=== PATIENT | female | born 1940 | race Caucasian/White ===

== ENCOUNTER 2019-03-31 13:05 | Inpatient (IN) | payer MEDICARE ==
--- NOTE | 2019-03-31 14:44 | XR ---
Right knee HISTORY: Right knee pain 3 views of the right knee Patient is status post right knee arthroplasty. There is anatomic alignment. Bone mineralization is r educed. No fracture or dislocation is evident. No evident joint effusion. IMPRESSION: Osteopenia, status post right knee arthroplasty.
--- NOTE | 2019-03-31 15:31 | ED ---
General Adult HPI - General Chief complaint: Extremity Injury, Lower Stated complaint: rt knee pain Time Seen by Provider: 03/31/19 13:18 Source: patient, family Mode of arrival: wheelchair Limitations: no limitations - History of Present Illness Initial comments: Patient is an 79-year-old male presents wit her son emergency Department with right knee pain. Patient reports that she is walking with a walker but is unable to fully bear weight on right knee. Patient states when she attempts walking the patella tends to dislocate medially which is causing a great pain and occasional swelling. Patient reports the pain does not radiate proximally or distally. Patient denies any skin discolorations. Patient reports that she is able to bear weight but only using a walker. Her son states that she has been going to the bathroom "up to 15 times" per day. - Related Data Home Medications Medication Instructions Recorded Confirmed Aspirin [[place] Aspirin EC] 81 mg PO DAILY 03/31/19 03/31/19 Atorvastatin [Lipitor] 40 mg PO DAILY 03/31/19 03/31/19 Docusate [Colace] 100 mg PO DAILY PRN 03/31/19 03/31/19 Ergocalciferol (Vitamin D2) 50,000 unit PO DORADO 03/31/19 03/31/19 [Drisdol] Ferrous Sulfate [Feosol] 325 mg PO DAILY 03/31/19 03/31/19 Furosemide [Lasix] 20 mg PO DAILY PRN 03/31/19 03/31/19 Levothyroxine Sodium [Synthroid] 75 mcg PO DAILY 03/31/19 03/31/19 Metoprolol Tartrate [Lopressor] 25 mg PO DAILY 03/31/19 03/31/19 Valsartan 160 mg PO DAILY 03/31/19 03/31/19 Allergies Allergy/AdvReac Type Severity Reaction Status Date / Time acetaminophen [From Vicodin] Allergy Unknown Verified 03/31/19 19:28 hydrocodone [From Vicodin] Allergy Unknown Verified 03/31/19 19:28 oxybutynin Allergy Unknown Verified 03/31/19 19:28 Review of Systems ROS Statement: Those systems with pertinent positive or pertinent negative responses have been documented in the HPI. ROS Other: All systems not noted in ROS Statement are negative. Past Medical History Past Medical History: Hyperlipidemia, Hypertension, Thyroid Disorder Additional Past Medical History / Comment(s): Anemia History of Any Multi-Drug Resistant Organisms: None Reported Past Surgical History: Appendectomy, Orthopedic Surgery, Tonsillectomy Additional Past Surgical History / Comment(s): Hip Past Psychological History: No Psychological Hx Reported Smoking Status: Current every day smoker Past Alcohol Use History: None Reported Past Drug Use History: None Reported - Past Family History Family Additional Family Medical History / Comment(s): Heart disease runs in the family General Exam Limitations: no limitations General appearance: alert, in no apparent distress Head exam: Present: atraumatic, normocephalic, normal inspection Eye exam: Present: normal appearance, PERRL, EOMI Pupils: Present: normal accommodation ENT exam: Present: normal exam, TM's normal bilaterally Neck exam: Present: normal inspection, full ROM Respiratory exam: Present: normal lung sounds bilaterally Cardiovascular Exam: Present: regular rate, normal rhythm, normal heart sounds GI/Abdominal exam: Present: soft, tenderness (Mild suprapubic tenderness on palpation.) Course Vital Signs 03/31/19 03/31/19 03/31/19 13:08 15:10 16:30 Temperature 98.6 F 98.4 F Pulse Rate 69 62 62 Respiratory 20 18 18 Rate Blood Pressure 158/71 148/79 169/89 O2 Sat by Pulse 97 99 97 Oximetry 03/31/19 03/31/19 03/31/19 17:00 17:30 18:00 Temperature Pulse Rate 64 64 70 Respiratory 15 18 18 Rate Blood Pressure 169/89 177/81 158/78 O2 Sat by Pulse 98 98 Oximetry EKG Findings - EKG Comments: EKG Findings:: Sinus rhythm with marked sinus arrhythmia. Ventricular rate 67, CT interval 170 QRS duration 92, QT/QTc 424/448, P-R-T axes 75 69 72 Medical Decision Making - Medical Decision Making Patient is an 79-year-old female presents emergency Department for right knee dislocations and possible UTI. Patient will be admitted for observation where she will be treated for UTI. Physical therapy and occupational therapy were also consulted to provide Comprehensive Care to the patient with orthopedic [place]. The admitting physician is - Lab Data Result diagrams: 03/31/19 16:15 03/31/19 16:15 Lab Results 03/31/19 03/31/19 03/31/19 Range/Units 16:15 16:15 17:05 WBC 8.0 (3.8-10.6) k/uL RBC 4.25 (3.80-5.40) m/uL Hgb 11.9 (11.4-16.0) gm/dL Hct 36.5 (34.0-46.0) % MCV 85.9 (80.0-100.0) fL MCH 28.0 (25.0-35.0) pg MCHC 32.6 (31.0-37.0) g/dL RDW 14.4 (11.5-15.5) % Plt Count 260 (150-450) k/uL Neutrophils % 73 % Lymphocytes % 17 % Monocytes % 5 % Eosinophils % 3 % Basophils % 1 % Neutrophils # 5.8 (1.3-7.7) k/uL Lymphocytes # 1.4 (1.0-4.8) k/uL Monocytes # 0.4 (0-1.0) k/uL Eosinophils # 0.2 (0-0.7) k/uL Basophils # 0.1 (0-0.2) k/uL Sodium 140 (137-145) mmol/L Potassium 4.1 (3.5-5.1) mmol/L Chloride 107 (98-107) mmol/L Carbon Dioxide 25 (22-30) mmol/L Anion Gap 8 mmol/L BUN 19 H (7-17) mg/dL Creatinine 0.50 L (0.52-1.04) mg/dL Est GFR (CKD-EPI)AfAm >90 (>60 ml/min/1.73 sqM) Est GFR (CKD-EPI)NonAf >90 (>60 ml/min/1.73 sqM) Glucose 95 (74-99) mg/dL Calcium 8.9 (8.4-10.2) mg/dL Total Bilirubin 0.4 (0.2-1.3) mg/dL AST 14 (14-36) U/L ALT 9 (9-52) U/L Alkaline Phosphatase 89 (38-126) U/L Total Protein 6.7 (6.3-8.2) g/dL Albumin 3.8 (3.5-5.0) g/dL Urine Color Yellow Urine Appearance Cloudy H (Clear) Urine pH 6.0 (5.0-8.0) Ur Specific [place] 1.018 (1.001-1.035) Urine Protein Trace H (Negative) Urine Glucose (UA) Negative (Negative) Urine Ketones Negative (Negative) Urine Blood Negative (Negative) Urine Nitrite Negative (Negative) Urine Bilirubin Negative (Negative) Urine Urobilinogen <2.0 (<2.0) mg/dL Ur Leukocyte Esterase Negative (Negative) Urine RBC 7 H (0-5) /hpf Urine WBC 7 H (0-5) /hpf Ur Squamous Epith Cells 7 H (0-4) /hpf Urine Mucus Occasional H (None) /hpf Disposition Clinical Impression: Knee pain, right, UTI (urinary tract infection) Disposition: HOME SELF-CARE Condition: Stable Instructions (If sedation given, give patient instructions): Urinary Tract Infection in Older Adults (ED) Additional Instructions: Patient will be admitted for inpatient care. Is patient prescribed a controlled substance at d/c from ED?: No Referrals: Mark Shepherd MD [Primary Care Provider] - 1-2 days Time of Disposition: 21:18
[2019-03-31 16:32] LABS: Basophils # (A) 0.1 k/uL (0-0.2); Basophils % (A) 1 %; Eosinophils # (A) 0.2 k/uL (0-0.7); Eosinophils % (A) 3 %; HCT 36.5 % (34.0-46.0); HGB 11.9 gm/dL (11.4-16.0); Lymphocytes # (A) 1.4 k/uL (1.0-4.8); Lymphocytes % (A) 17 %; MCHC 32.6 g/dL (31.0-37.0); MCV 85.9 fL (80.0-100.0); Mean Platelet Volume 7.7; Monocytes # (A) 0.4 k/uL (0-1.0); Monocytes % (A) 5 %; Neutrophils # (A) 5.8 k/uL (1.3-7.7); Neutrophils % (A) 73 %; Platelet Count 260 k/uL (150-450); RBC 4.25 m/uL (3.80-5.40); RDW 14.4 % (11.5-15.5)
[2019-03-31 16:43] LABS: ALT 9 U/L (9-52); AST 14 U/L (14-36); African American GFR (CKD) >90 (>60 ml/min/1.73 sqM); Albumin 3.8 g/dL (3.5-5.0); Alkaline Phosphatase 89 U/L (38-126); Anion Gap 8 mmol/L; Blood Urea Nitrogen 19 mg/dL (7-17); Calcium 8.9 mg/dL (8.4-10.2); Carbon Dioxide 25 mmol/L (22-30); Chloride 107 mmol/L (98-107); Glucose 95 mg/dL (74-99); Potassium 4.1 mmol/L (3.5-5.1); Sodium 140 mmol/L (137-145); Total Bilirubin 0.4 mg/dL (0.2-1.3); Total Protein 6.7 g/dL (6.3-8.2)
--- NOTE | 2019-03-31 16:47 | XR ---
EXAMINATION TYPE: XR chest 2V DATE OF EXAM: 03/31/2019 COMPARISON: EXAMINATION TYPE: XR chest 2V DATE OF EXAM: 03/31/2019 COMPARISON: NONE HISTORY: Cough TECHNIQUE: 2 views FINDINGS: Heart is normal. Lungs are clear of consolidation. Thoracic aorta is atheromatous. 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 There are chest leads. IMPRESSION: No active cardiopulmonary disease.
[2019-03-31 17:23] LABS: Appearance,Urine Cloudy (Clear); Bilirubin,Urine Negative (Negative); Blood,Urine Negative (Negative); Color,Urine Yellow; Glucose,Urine (UA) Negative (Negative); Ketones,Urine Negative (Negative); Leukocyte Esterase,Urine Negative (Negative); Mucus,Urine Occasional /hpf; Nitrite,Urine Negative (Negative); Protein,Urine Trace (Negative); RBC,Urine 7 /hpf (0-5); Specific Gravity,Urine 1.018 (1.001-1.035); Squamous Epithelial Cell,Urine 7 /hpf (0-4); Urobilinogen,Urine <2.0 mg/dL (<2.0); WBC,Urine 7 /hpf (0-5)
[2019-03-31] MEDS ORDERED: NALOXONE 0.4 MG/ML 1 ML VIAL IV PRN (19:07)
[2019-03-31] MEDS ORDERED: LEVOFLOXACIN 500 MG TAB PO STA (19:10)
[2019-03-31] MEDS ORDERED: DOCUSATE 100 MG CAP PO PRN (20:40)
--- NOTE | 2019-03-31 20:40 | P.HPIM ---
History of Present Illness H&P Date: 03/31/19 Chief Complaint: Generalized debility difficulty ambulating 79-year-old female with history of hypertension hyperlipidemia osteoporosis Patient was brought into the hospital as the son is unable to take care of her at home anymore she's been having difficulty ambulating despite using a walker requiring a lot of assistance. She was going to the bathroom 15 times a day for urinating. Patient however denies any abdominal pain fevers chills foul urinary smell or any hematuria. Patient also reports frequent dislocation of the patella over her right knee when weightbearing which makes ambulating is even a more challenging due to pain Patient has been following up with orthopedics since August 2018 due to fracture in her left hip and due to osteoporosis and was difficult to fix that hip requiring multiple surgeries and then she had rehab until exhausted her 100 days. Then she had home physical therapy for 4 weeks patient and family noticed no much benefit from that ended up with some contractures in her left lower extremity and worsening weakness. Per the son now the patient is eligible for another 100 days at rehab facility for which he seeking help from us to get transferred to rehab. He spoke with Terry Flor and told him that he needs to go to the hospital to be placed at rehab. Despite me explaining to him that she doesn't qualify for admission and she is only under observation status and that is qualify her for rehab he insisted on staying in the hospital seeking physical therapy team and geriatric social work professor to look at her options hoping for some placement Otherwise patient denies any GI bleeding denies any abdominal pain chest pain or trouble breathing denies any fevers or chills denies any coughing she feels at her baseline status of health except for deteriorating overall functional capacity with difficulty ambulating and getting 2 places. She is not living at her place anymore which requires 8 steps to get to her home. Currently she l gerardo with her son who has only one step and he is helping carrying her through that step to get into the house However son indicated that he is very busy with work and life and he is unable to provide his mother with the care that she needs Review of Systems Pertinent positives as noted in HPI. All other systems were reviewed and are negative Past Medical History Past Medical History: Hyperlipidemia, Hypertension, Thyroid Disorder Additional Past Medical History / Comment(s): Anemia History of Any Multi-Drug Resistant Organisms: None Reported Past Surgical History: Appendectomy, Orthopedic Surgery, Tonsillectomy Additional Past Surgical History / Comment(s): Hip Past Psychological History: No Psychological Hx Reported Smoking Status: Current every day smoker Past Alcohol Use History: None Reported Past Drug Use History: None Reported - Past Family History Family Additional Family Medical History / Comment(s): Heart disease runs in the family Medications and Allergies Home Medications Medication Instructions Recorded Confirmed Type Aspirin [[place] Aspirin EC] 81 mg PO DAILY 03/31/19 03/31/19 History Atorvastatin [Lipitor] 40 mg PO DAILY 03/31/19 03/31/19 History Docusate [Colace] 100 mg PO DAILY PRN 03/31/19 03/31/19 History Ergocalciferol (Vitamin D2) 50,000 unit PO DORADO 03/31/19 03/31/19 History [Drisdol] Ferrous Sulfate [Feosol] 325 mg PO DAILY 03/31/19 03/31/19 History Furosemide [Lasix] 20 mg PO DAILY PRN 03/31/19 03/31/19 History Levothyroxine Sodium [Synthroid] 75 mcg PO DAILY 03/31/19 03/31/19 History Metoprolol Tartrate [Lopressor] 25 mg PO DAILY 03/31/19 03/31/19 History Valsartan 160 mg PO DAILY 03/31/19 03/31/19 History Allergies Allergy/AdvReac Type Severity Reaction Status Date / Time acetaminophen [From Vicodin] Allergy Unknown Verified 03/31/19 19:28 hydrocodone [From Vicodin] Allergy Unknown Verified 03/31/19 19:28 oxybutynin Allergy Unknown Verified 03/31/19 19:28 Physical Exam Vitals: Vital Signs Temp Pulse Resp BP Pulse Ox 03/31/19 18:00 70 18 158/78 98 03/31/19 17:30 64 18 177/81 03/31/19 17:00 64 15 169/89 98 03/31/19 16:30 62 18 169/89 97 03/31/19 15:10 98.4 F 62 18 148/79 99 03/31/19 13:08 98.6 F 69 20 158/71 97 Intake and Output 03/31/19 03/31/19 03/31/19 06:59 14:59 22:59 Other: Weight 66.678 kg Constitutional: No acute distress, conversant, pleasant Eyes: Anicteric sclerae, moist conjunctiva, no lid-lag Pupils equal round reactive to light ENMT: NC/AT Oropharynx clear, no erythema, exudates Neck: Supple, FROM, no masses, or JVD No carotid bruits No thyromegaly Lungs: Clear to auscultation Clear to percussion Normal respiratory effort, no accessory muscle use Cardiovascular: Heart regular in rate and rhythm, No murmurs, gallops, or rubs No peripheral edema Abdominal: Soft Nontender, no guarding, rebound or rigidity Abdomen moving with respiration Normoactive bowel sounds No hepatomegaly, No splenomegaly No palpable mass No abdominal wall hernia noted Skin: Normal temperature, tone, texture, turgor No induration No subcutaneous nodules No rash, lesions No ulcers Extremities: No digital cyanosis No clubbing Pedal pulses intact and symmetrical Radial pulses intact and symmetrical No calf tenderness Psychiatric: Alert and oriented to person, place not oriented to time Appropriate affect fair judgment Neuro Muscles Strength 4/5 in bilateral upper extremities and right lower extremity, however left lower extremity proximal muscle group with strength of 3 out of 5 which is chronic per the patient Sensation to light touch grossly present throughout Cranial nerves II-XII grossly intact No focal sensory deficits Lymphatics: no palpable cervical or supraclavicular , or inguinal lymph nodes Results CBC & Chem 7: 03/31/19 16:15 03/31/19 16:15 Labs: Abnormal Lab Results - Last 24 Hours (Table) 03/31/19 03/31/19 Range/Units 16:15 17:05 BUN 19 H (7-17) mg/dL Creatinine 0.50 L (0.52-1.04) mg/dL Urine Appearance Cloudy H (Clear) Urine Protein Trace H (Negative) Urine RBC 7 H (0-5) /hpf Urine WBC 7 H (0-5) /hpf Ur Squamous Epith Cells 7 H (0-4) /hpf Urine Mucus Occasional H (None) /hpf Assessment and Plan Assessment: 79-year-old female with history of hypertension hyperlipidemia osteoporosis Admitted under observation with anticipated length of stay less than 48 hours due to generalized debility and difficulty ambulating. for physical therapy evaluation and looking at placement options patient has attempted home physical therapy for over 4 weeks with no much benefit I explained to the patient that normally patient has to be admitted for them to get placed however he requested to go ahead with evaluation and attempt placement despite understanding that this could be difficult with observation status patient's son claims that he is unable to take care of her at home anymore Plan: Generalized debility with difficulty ambulating History of osteoporosis Right knee pain and frequent dislocation of the patella with weightbearing Pain control PT/OT evaluation Observation monitoring overnight transplant worker to work with the patient on their options of placement and therapy Patient has attempted home physical therapy for 4 weeks with no much benefits Son is unable to take care of the patient anymore DVT prophylaxis heparin subcu 3 times a day Chronic conditions Hypertension Hypothyroid Hyperlipidemia Continue home meds Frequent urination Urine analysis unremarkable with contaminated sample Check cultures Surrogate decision-maker: Patient's son CODE STATUS: Full code Discussed with: Patient, ER Anticipated discharge: <[address]: pending geriatric social work professor evaluation A total of 60 minutes was spent on the care of this complex patient more than 50% of the time was spent in counseling and care coordination.
[2019-04-01 02:12] VITALS: BMI 26.0
[2019-04-01] MEDS: HEPARIN SODIUM,PORCINE 5,000 UNIT/ML 1 ML VIAL SQ SCH ×4 (02:22→21:25)
[2019-04-01] MEDS: LEVOTHYROXINE 75 MCG TAB PO SCH (05:40)
[2019-04-01] MEDS: METOPROLOL TARTRATE 25 MG TAB PO SCH (08:45)
[2019-04-01] MEDS: VALSARTAN 160 MG TAB PO SCH (08:45)
[2019-04-01] MEDS: ASPIRIN 81 MG PO SCH (08:45)
[2019-04-01] MEDS: ATORVASTATIN 40 MG TAB PO SCH (08:46)
--- NOTE | 2019-04-01 13:22 | P.PN ---
Subjective Progress Note Date: 04/01/19 Principal diagnosis: Right knee pain Patient was seen and examined. No acute events overnight. Patient continues to report right knee pain and instability. States that she has difficulty even taking a few steps with a walker. Also states that her left knee has limited mobility due to previous surgeries. She denies any chest pain, shortness of breath or palpitations. No nausea or vomiting. No fever or chills. Objective - Vital Signs Vital signs: Vital Signs Temp 97.9 F 04/01/19 11:56 Pulse 67 04/01/19 11:56 Resp 17 04/01/19 11:56 BP 142/96 04/01/19 11:56 Pulse Ox 97 04/01/19 11:56 Intake & Output 03/31/19 04/01/19 04/01/19 18:59 06:59 18:59 Weight 66.678 kg Other: Voiding Method Diaper Diaper # Voids 1 - Exam General: [non toxic], [no distress], [appears at stated age] Derm: [warm], [dry] Head: [atraumatic], [normocephalic], [symmetric] Eyes: [EOMI], [no lid lag], [anicteric sclera] Mouth: [no lip lesion], [mucus membranes moist] Cardiovascular: [S1S2 reg], [no murmur], [positive DP pulse bilateral] Lungs: [CTA bilateral], [no rhonchi, no rales] , [no accessory muscle use] Abdominal: [soft], [ nontender to palpation], [no guarding], [no appreciable organomegaly] Ext: [no gross muscle atrophy], [no edema], [decreased range of motion of the left knee] Neuro: [ CN II-XI grossly intact], [4/5 strength in the bilateral lower extremities] Psych: [Alert], [oriented], [appropriate affect] - Labs CBC & Chem 7: 03/31/19 16:15 03/31/19 16:15 Labs: Abnormal Lab Results - Last 24 Hours (Table) 03/31/19 03/31/19 Range/Units 16:15 17:05 BUN 19 H (7-17) mg/dL Creatinine 0.50 L (0.52-1.04) mg/dL Urine Appearance Cloudy H (Clear) Urine Protein Trace H (Negative) Urine RBC 7 H (0-5) /hpf Urine WBC 7 H (0-5) /hpf Ur Squamous Epith Cells 7 H (0-4) /hpf Urine Mucus Occasional H (None) /hpf Assessment and Plan Assessment: Assessment and Plan Right knee pain and frequent dislocation of the patella with weightbearing Hypertension Hyperlipidemia Hypothyroidism X-ray of the right knee shows osteopenia and status post right knee arthroplasty. Patient does not currently meet inpatient criteria. Evaluated by physical therapy, feels as if patient would be unsafe discharge at this time due to difficulty in ambulation and low level of help available at home. Plans: Adequate pain management. Will follow-up PT and OT recommendations. Fall precautions. Will need to discuss with social work regarding discharge planning options. BP 142/96. Plans: Continue metoprolol and valsartan. Monitor vitals, adjust medications as necessary. Plans: Continue aspirin and Lipitor. Plans: Continue Synthroid.
[2019-04-02] MEDS: LEVOTHYROXINE 75 MCG TAB PO SCH (05:25)
[2019-04-02] MEDS: ATORVASTATIN 40 MG TAB PO SCH (08:17)
[2019-04-02] MEDS: ASPIRIN 81 MG PO SCH (08:17)
[2019-04-02] MEDS: METOPROLOL TARTRATE 25 MG TAB PO SCH (08:17)
[2019-04-02] MEDS: VALSARTAN 160 MG TAB PO SCH (08:17)
[2019-04-02] MEDS: HEPARIN SODIUM,PORCINE 5,000 UNIT/ML 1 ML VIAL SQ SCH ×3 (08:17→21:16)
--- NOTE | 2019-04-02 15:27 | P.PN ---
Subjective Progress Note Date: 04/02/19 Principal diagnosis: Right knee pain and instability Patient was seen and examined. No acute events overnight. Patient continues to report right knee pain and instability. States that she was able to use the bedside commode with some difficulty. She denies any chest pain, shortness of breath or palpitations. No nausea or vomiting. No fever or chills. Objective - Vital Signs Vital signs: Vital Signs Temp 97.6 F 04/02/19 11:59 Pulse 70 04/02/19 11:59 Resp 16 04/02/19 11:59 BP 156/74 04/02/19 11:59 Pulse Ox 95 04/02/19 11:59 Intake & Output 04/01/19 04/02/19 04/02/19 18:59 06:59 18:59 Intake Total 420 Output Total 500 Balance -80 Intake: Oral 420 Output: Urine 500 Other: Voiding Method Diaper Diaper Diaper # Voids 1 # Bowel Movements 0 - Exam General: [non toxic], [no distress], [appears at stated age] Derm: [warm], [dry] Head: [atraumatic], [normocephalic], [symmetric] Eyes: [EOMI], [no lid lag], [anicteric sclera] Mouth: [no lip lesion], [mucus membranes moist] Cardiovascular: [S1S2 reg], [no murmur], [positive DP pulse bilateral] Lungs: [CTA bilateral], [no rhonchi, no rales] , [no accessory muscle use] Abdominal: [soft], [ nontender to palpation], [no guarding], [no appreciable organomegaly] Ext: [no gross muscle atrophy], [no edema], [decreased range of motion of the left knee] Neuro: [4/5 strength in the bilateral lower extremities] Psych: [Alert], [oriented], [appropriate affect] - Labs CBC & Chem 7: 03/31/19 16:15 03/31/19 16:15 Assessment and Plan Assessment: Assessment and Plan Right knee pain and frequent dislocation of the patella with weightbearing Hypertension Hyperlipidemia Hypothyroidism X-ray of the right knee shows osteopenia and status post right knee arthroplasty. Patient does not currently meet inpatient criteria. Evaluated by physical therapy, feels as if patient would be unsafe discharge at this time due to difficulty in ambulation and low level of help available at home. Plans: Adequate pain management. Will follow-up PT and OT recommendations. Fall precautions. Will need to discuss with social work regarding discharge planning options. BP 156/74. Plans: Continue metoprolol and valsartan. Monitor vitals, adjust medications as necessary. Plans: Continue aspirin and Lipitor. Plans: Continue Synthroid. Discuss with social work yesterday, patient has insurance that qualifies her for rehab. We will consult social work and case management tomorrow to plan out her discharge needs.
[2019-04-03] MEDS: LEVOTHYROXINE 75 MCG TAB PO SCH (06:01)
--- NOTE | 2019-04-03 08:27 | P.DS ---
Providers Date of admission: 03/31/19 23:02 Expected date of discharge: 04/03/19 Attending physician: Jennifer Birch DO Primary care physician: Mark Shepherd [facility] Course: 79-year-old female with history of hypertension hyperlipidemia osteoporosis Patient was brought into the hospital as the son is unable to take care of her at home anymore she's been having difficulty ambulating despite using a walker requiring a lot of assistance. She was going to the bathroom 15 times a day for urinating. Patient however denies any abdominal pain fevers chills foul urinary smell or any hematuria. 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 Then she had home physical therapy for 4 weeks patient and family noticed no much benefit from that ended up with some contractures in her left lower extremity and worsening weakness. Per the son now the patient is eligible for another 100 days at rehab facility for which he seeking help from us to get transferred to rehab. He spoke with Terry Flor and told him that he needs to go to the hospital to be placed at rehab. Despite me explaining to him that she doesn't qualify for admission and she is only under observation status and that is qualify her for rehab he insisted on staying in the hospital seeking physical therapy team and licensed master social worker to look at her options hoping for some placement Otherwise patient denies any GI bleeding denies any abdominal pain chest pain or trouble breathing denies any fevers or chills denies any coughing she feels at her baseline status of health except for deteriorating overall functional capacity with difficulty ambulating and getting 2 places. She is not living at her place anymore which requires 8 steps to get to her home. Currently she lives with her son who has only one step and he is helping carrying her through that step to get into the house However son indicated that he is very busy with work and life and he is unable to provide his mother with the care that she needs. Patient was admitted for right knee pain and frequent dislocation of the patella with weightbearing. X-ray of the right knee showed osteopenia and status post right knee arthroplasty. Patient was evaluated by physical therapy and was deemed to be an unsafe discharge due to difficulty in ambulation and low level of help at home. Patient was placed on fall precautions. Otherwise, her home medications were resumed for hypertension, hyperlipidemia and hypothyroidism. Patient was seen and examined. No acute events overnight. Patient reported difficulty ambulating to the bedside commode this morning. States that she required the help of her nurses. She denies any chest pain, shortness of breath or palpitations. Tolerating diet well. General: [non toxic], [no distress], [appears at stated age] Derm: [warm], [dry] Head: [atraumatic], [normocephalic], [symmetric] Eyes: [EOMI], [no lid lag], [anicteric sclera] Mouth: [no lip lesion], [mucus membranes moist] Cardiovascular: [S1S2 reg], [no murmur], [positive DP pulse bilateral] Lungs: [CTA bilateral], [no rhonchi, no rales] , [no accessory muscle use] Abdominal: [soft], [ nontender to palpation], [no guarding], [no appreciable organomegaly] Ext: [no gross muscle atrophy], [no edema], [decreased range of motion of the left knee] Neuro: [4/5 strength in the bilateral lower extremities] Psych: [Alert], [oriented], [appropriate affect] Assessment and Plan Right knee pain and frequent dislocation of the patella with weightbearing Hypertension Hyperlipidemia Hypothyroidism X-ray of the right knee shows osteopenia and status post right knee arthroplasty. Patient does not currently meet inpatient criteria. Evaluated by physical therapy, feels as if patient would be unsafe discharge at this time due to difficulty in ambulation and low level of help available at home. Plans: Adequate pain management. Will follow-up PT and OT recommendations. Fall precautions. Will need to discuss with social work regarding discharge planning options. BP 157/88. Plans: Continue metoprolol and valsartan. Monitor vitals, adjust medications as necessary. Plans: Continue aspirin and Lipitor. Plans: Continue Synthroid. Discuss with social work yesterday, patient has insurance that qualifies her for rehab. We will consult social work and case management tomorrow to plan out her discharge needs. Possible DC to rehab today. Pertinent Studies: Knee x-ray, chest x-ray Patient Condition at Discharge: Stable Plan - Discharge Summary Discharge Rx Participant: No New Discharge Prescriptions: Continue Ferrous Sulfate [Feosol] 325 mg PO DAILY Ergocalciferol (Vitamin D2) [Drisdol] 50,000 unit PO DORADO Docusate [Colace] 100 mg PO DAILY PRN PRN Reason: Constipation Metoprolol Tartrate [Lopressor] 25 mg PO DAILY Levothyroxine Sodium [Synthroid] 75 mcg PO DAILY Atorvastatin [Lipitor] 40 mg PO DAILY Aspirin [[place] Aspirin EC] 81 mg PO DAILY Valsartan 160 mg PO DAILY Furosemide [Lasix] 20 mg PO DAILY PRN PRN Reason: EDEMA-PT HASNT BEEN TAKING Discharge Medication List Aspirin [[place] Aspirin EC] 81 mg PO DAILY 03/31/19 [History] Atorvastatin [Lipitor] 40 mg PO DAILY 03/31/19 [History] Docusate [Colace] 100 mg PO DAILY PRN 03/31/19 [History] Ergocalciferol (Vitamin D2) [Drisdol] 50,000 unit PO DORADO 03/31/19 [History] Ferrous Sulfate [Feosol] 325 mg PO DAILY 03/31/19 [History] Furosemide [Lasix] 20 mg PO DAILY PRN 03/31/19 [History] Levothyroxine Sodium [Synthroid] 75 mcg PO DAILY 03/31/19 [History] Metoprolol Tartrate [Lopressor] 25 mg PO DAILY 03/31/19 [History] Valsartan 160 mg PO DAILY 03/31/19 [History] Follow up Appointment(s)/Referral(s): Mark Shepherd MD [Primary Care Provider] - 1-2 days Patient Instructions/Handouts: Urinary Tract Infection in Older Adults (ED) Activity/Diet/Wound Care/Special Instructions: Patient will be admitted for inpatient care. Follow-up PCP within 1-2 days of discharge. Discharge Disposition: TRANSFER TO SNF/ECF
[2019-04-03] MEDS: VALSARTAN 160 MG TAB PO SCH (09:06)
[2019-04-03] MEDS: METOPROLOL TARTRATE 25 MG TAB PO SCH (09:06)
[2019-04-03] MEDS: ASPIRIN 81 MG PO SCH (09:06)
[2019-04-03] MEDS: HEPARIN SODIUM,PORCINE 5,000 UNIT/ML 1 ML VIAL SQ SCH (09:06)
[2019-04-03] MEDS: ATORVASTATIN 40 MG TAB PO SCH (09:06)
[2019-04-03 12:54] VITALS: BP 125/76; PULSE 65; RESP 17; TEMP 97.3
== END 2019-04-03 16:51 | DRG 556 ==
LOC: EC 13:05 → OBSVTOIN 23:02 → 3NMEDONC 23:02
PROVIDERS: ADMIT Internal Medicine; ATTEND Internal Medicine
DX: M25.561 Pain in right knee (principal); N39.0 Urinary tract infection, site not specified; R26.2 Difficulty in walking, not elsewhere classified; R53.81 Other malaise; E03.9 Hypothyroidism, unspecified; E78.5 Hyperlipidemia, unspecified; F17.200 Nicotine dependence, unspecified, uncomplicated; I10 Essential (primary) hypertension; M81.0 Age-related osteoporosis without current pathological fracture; M85.861 Other specified disorders of bone density and structure, right lower leg; Z79.82 Long term (current) use of aspirin; Z79.890 Hormone replacement therapy; Z79.899 Other long term (current) drug therapy; Z96.651 Presence of right artificial knee joint; Z90.49 Acquired absence of other specified parts of digestive tract; Z88.6 Allergy status to analgesic agent; Z88.5 Allergy status to narcotic agent
CPT/HCPCS: 36415; 71046; 80053; 81001; 85025; 93005; 99284